=== PATIENT | female | born 1940 | race Caucasian/White ===

== ENCOUNTER → 2016-11-24 | Outpatient (CLI) | payer MEDICARE, BC ==
--- NOTE | 2016-11-25 12:55 | MM ---
Reason for exam: screening (asymptomatic). Last mammogram was performed 1 year and 1 month ago. History: Patient is postmenopausal. Family history of breast cancer in daughter at age 52 and breast cancer in paternal aunt at age 55. Benign excisional biopsy of the right breast. Physical Findings: A clinical breast exam by your physician is recommended on an annual basis and results should be correlated with mammographic findings. MG 3D Screening Mammo W/Cad Bilateral CC and MLO view(s) were taken. Prior study comparison: November 09, 2015, bilateral MG screening mammo w CAD. April 30, 2014, bilateral MG screening mammo w CAD. April 16, 2013, bilateral digital screening mammo w/CAD. There are scattered fibroglandular densities. There is no discrete abnormality. ASSESSMENT: Negative, BI-RAD 1 RECOMMENDATION: Routine screening mammogram of both breasts in 1 year.
== END | disposition home or self-care (01) ==
LOC: RADMAMWWP 09:17
PROVIDERS: ATTEND Family Medicine
DX: Z12.31 Encounter for screening mammogram for malignant neoplasm of breast (principal)
CPT/HCPCS: 77063; G0202

== ENCOUNTER → 2017-01-12 | Outpatient (CLI) | payer MEDICARE, BC ==
--- NOTE | 2017-01-12 13:01 | US ---
EXAMINATION TYPE: US kidneys/renal and bladder DATE OF EXAM: 01/12/2017 COMPARISON: NONE CLINICAL HISTORY: N39.0 Urinary tract infection. UTI, no pain EXAM MEASUREMENTS: Right Kidney: 10.8 x 5.0 x 4.2 cm Left Kidney: 10.6 x 4.7 x 4.9 cm Right Kidney: wnl Left Kidney: wnl Bladder: distended, wnl as visualized Bilateral Jets not seen There is no evidence for hydronephrosis at this point in time. No nephrolithiasis is seen. No marcel s are identified. Cortical medullary differentiation is normal. The urinary bladder is anechoic. Sarabjit ateral ureteral jets are not seen. No evident ascites. IMPRESSION: Normal renal ultrasound, no hydronephrosis.
--- NOTE | 2017-01-12 13:02 | XR ---
Abdomen HISTORY: Frequent urinary tract infection, and 39.0 Frontal view of the abdomen submitted, no comparisons Probable phleboliths within the pelvis. Lung bases are not included on the exam. Calcifications are n oted in the right upper quadrant. No pneumoperitoneum or bowel obstruction. There is likely facet art hropathy in the lower lumbar spine. IMPRESSION: Cholelithiasis.
== END | disposition home or self-care (01) ==
LOC: RADUSWWP 10:51
PROVIDERS: ATTEND Urology
DX: K80.20 Calculus of gallbladder without cholecystitis without obstruction (principal); N39.0 Urinary tract infection, site not specified
CPT/HCPCS: 74000; 76770

== ENCOUNTER → 2017-03-27 | Outpatient (CLI) | payer MEDICARE, BC ==
[2017-03-27 10:41] LABS: Basophils # (A) 0.1 k/uL (0-0.2); Basophils % (A) 1 %; CH 29.4; Eosinophils # (A) 0.2 k/uL (0-0.7); Eosinophils % (A) 2 %; HCT 42.5 % (34.0-46.0); HDW 2.26; HGB 13.6 gm/dL (11.4-16.0); Luc # (Auto) 0.16; Luc % (Auto) 2; Lymphocytes # (A) 2.5 k/uL (1.0-4.8); Lymphocytes % (A) 26 %; MCH 29.6 pg (25.0-35.0); MCV 92.5 fL (80.0-100.0); Mean Platelet Volume 7.5; Monocytes # (A) 0.5 k/uL (0-1.0); Monocytes % (A) 5 %; Neutrophils % (A) 64 %; RBC 4.59 m/uL (3.80-5.40); RDW 13.8 % (11.5-15.5); WBC 9.5 k/uL (3.8-10.6); WBC (Perox) 9.36
[2017-03-27 10:56] LABS: ALT 28 U/L (9-52); AST 19 U/L (14-36); Alkaline Phosphatase 78 U/L (38-126); Anion Gap 10 mmol/L; Blood Urea Nitrogen 19 mg/dL (7-17); Calcium 9.8 mg/dL (8.4-10.2); Carbon Dioxide 27 mmol/L (22-30); Chloride 106 mmol/L (98-107); Cholesterol 232 mg/dL (<200); Glucose 97 mg/dL (74-99); HDL Cholesterol 52 mg/dL (40-60); Non-African American GFR(MDRD) >60 (>60 ml/min/1.73 sqM); Potassium 4.2 mmol/L (3.5-5.1); Sodium 143 mmol/L (137-145); Total Bilirubin 0.3 mg/dL (0.2-1.3); Total Protein 7.5 g/dL (6.3-8.2)
== END | disposition home or self-care (01) ==
LOC: LABWHC1 09:37
PROVIDERS: ATTEND Family Medicine
DX: Z00.00 Encounter for general adult medical examination without abnormal findings (principal); M15.0 Primary generalized (osteo)arthritis; I10 Essential (primary) hypertension
CPT/HCPCS: 36415; 80053; 80061; 84439; 84443; 85025

== ENCOUNTER → 2017-10-10 | Outpatient (CLI) | payer MEDICARE, BC ==
--- NOTE | 2017-10-10 10:12 | CT ---
EXAMINATION TYPE: CT chest wo con DATE OF EXAM: 10/10/2017 COMPARISON: Low-dose CT of the lungs 04/03/2017 HISTORY: Lung nodule CT DLP: 389.[address] of the chest was performed with lung and mediastinal window settings submitted. The la ck of contrast limits evaluation of the vascular, mediastinal and parenchymal structures including th e upper abdomen. LUNGS: Noted are 2 stable nonspecific pulmonary nodules at the right lung base some measuring 3.8 mm and 3.5 L respectively. Small calcified granuloma also identified. No additional nodules are identifi ed. There is mild scattered subpleural fibrosis. MEDIASTINUM/LISBETH: Thoracic aorta is of normal caliber with limited evaluation given lack of contrast . Mild atheromatous change of the thoracic aorta. The heart is not enlarged. No evidence for mediast inal mass. No lymph nodes greater than 1cm. UPPER ABDOMEN: No significant abnormality is seen. OTHER: No significant other abnormality. IMPRESSION: 1. Stable nonspecific nodularity. Stability over a two-year timeframe should be documented radiograph ically. 2. Mild subpleural fibrosis. Minimal upper lobe emphysematous change.
== END | disposition home or self-care (01) ==
LOC: RADCTMAIN 09:34
PROVIDERS: ATTEND Family Medicine
DX: J84.10 Pulmonary fibrosis, unspecified (principal); J43.9 Emphysema, unspecified
CPT/HCPCS: 71250

== ENCOUNTER → 2018-03-02 | Outpatient (CLI) | payer MEDICARE, BC ==
--- NOTE | 2018-03-05 10:04 | MM ---
Reason for exam: screening (asymptomatic). Last mammogram was performed 1 year and 3 months ago. History: Patient is postmenopausal. Family history of breast cancer in daughter at age 52 and breast cancer in paternal aunt at age 55. Benign excisional biopsy of the right breast. Physical Findings: A clinical breast exam by your physician is recommended on an annual basis and results should be correlated with mammographic findings. MG 3D Screening Mammo W/Cad Bilateral CC and MLO view(s) were taken. Prior study comparison: November 24, 2016, bilateral MG 3d screening mammo w/cad. November 09, 2015, bilateral MG screening mammo w CAD. There are scattered fibroglandular densities. There is no discrete abnormality. No significant changes when compared with prior studies. ASSESSMENT: Negative, BI-RAD 1 RECOMMENDATION: Routine screening mammogram of both breasts in 1 year.
== END | disposition home or self-care (01) ==
LOC: RADMAMWWP 08:58
PROVIDERS: ATTEND Family Medicine
DX: Z12.31 Encounter for screening mammogram for malignant neoplasm of breast (principal)
CPT/HCPCS: 77063; 77067

== ENCOUNTER → 2018-03-09 | Outpatient (CLI) | payer MEDICARE, BC ==
--- NOTE | 2018-03-09 11:37 | FL ---
EXAMINATION TYPE: FL barium swallow w video DATE OF EXAM: 03/09/2018 MODIFIED SWALLOW / DEGLUTITION STUDY CLINICAL HISTORY: Dysphagia. TECHNIQUE: Deglutition study is performed utilizing thin liquid barium, honey and nectar thick liqui d barium, barium thick applesauce, and barium coated cracker. 1:05 min FL time. 0 fluoroscopic image s saved, video recorded aerated COMPARISON: None. FINDINGS: The oral and pharyngeal phases show satisfactory initiation and propagation with all modali ties tested. Normal mastication is seen with solid modalities tested. A lower cervical fusion device is seen. This location there is persistent/recurrent small volume stasis likely from esophageal spas m. There is no evidence of penetration or aspiration with any modality tested. No significant pharyn geal residue was appreciated. IMPRESSION: Small volume recurrent stasis anterior to the cervical fusion device likely as a result o f esophageal spasm. No evidence of laryngeal penetration or aspiration. Please refer to speech thera pist notes for further details if necessary.
== END | disposition home or self-care (01) ==
LOC: RADFLMAIN 10:51
PROVIDERS: ATTEND Otolaryngology
DX: R13.10 Dysphagia, unspecified (principal)
CPT/HCPCS: 74230

== ENCOUNTER → 2018-10-25 | Outpatient (CLI) | payer MEDICARE, BC ==
[2018-10-25 11:18] LABS: Basophils # (A) 0.1 k/uL (0-0.2); Basophils % (A) 1 %; Eosinophils # (A) 0.3 k/uL (0-0.7); Eosinophils % (A) 3 %; HCT 41.2 % (34.0-46.0); HGB 12.6 gm/dL (11.4-16.0); Lymphocytes % (A) 22 %; MCH 28.2 pg (25.0-35.0); MCHC 30.5 g/dL (31.0-37.0); MCV 92.5 fL (80.0-100.0); Mean Platelet Volume 8.6; Monocytes # (A) 0.5 k/uL (0-1.0); Monocytes % (A) 6 %; Neutrophils # (A) 6.4 k/uL (1.3-7.7); Neutrophils % (A) 68 %; Platelet Count 291 k/uL (150-450); RBC 4.45 m/uL (3.80-5.40); RDW 14.9 % (11.5-15.5); WBC 9.4 k/uL (3.8-10.6)
[2018-10-25 18:00] LABS: Albumin 4.1 g/dL (3.80-4.90); Albumin/Globulin Ratio 1.64 (1.60-3.17); Calcium 9.9 mg/dL (8.7-10.3); Globulin 2.5 g/dL (1.6-3.3); LDL Cholesterol,Calculated 98.6 mg/dL (0.0-131.0); Potassium 4.3 mmol/L (3.5-5.5); Total Bilirubin 0.4 mg/dL (0.2-1.2); Total Protein 6.6 g/dL (6.2-8.2); VLDL Calculation 16.4 mg/dL (5.00-40.00)
[2018-10-25 18:07] LABS: T4, Free (Free Thyroxine) 1.3 ng/dL (0.80-1.80)
== END | disposition home or self-care (01) ==
LOC: LABWHC1 09:58
PROVIDERS: ATTEND Family Medicine
DX: Z00.00 Encounter for general adult medical examination without abnormal findings (principal); E78.5 Hyperlipidemia, unspecified; I10 Essential (primary) hypertension; E03.9 Hypothyroidism, unspecified
CPT/HCPCS: 36415; 80053; 80061; 84439; 84443; 85025

== ENCOUNTER → 2019-01-03 | Outpatient (CLI) | payer MEDICARE | END | disposition home or self-care (01) | LOC: RADCTMAIN 16:09 | PROVIDERS: ATTEND Internal Medicine Critical Care Medicine | DX: Z53.9 Procedure and treatment not carried out, unspecified reason (principal) ==

== ENCOUNTER → 2019-01-10 | Outpatient (CLI) | payer MEDICARE ==
--- NOTE | 2019-01-10 08:19 | CT ---
EXAMINATION TYPE: CT chest w con DATE OF EXAM: 01/10/2019 COMPARISON: 10/11/2007 HISTORY: Prior abn CT CT DLP: 383.7 mGycm Automated exposure control for dose reduction was used. CONTRAST: CT scan of the chest is performed with IV Contrast, patient injected with 80 mL of Isovue 300. FINDINGS: LUNGS: Noted are 2 stable nonspecific pulmonary nodules at the right lung base some measuring 3.8 mm and 3.5 mm respectively. Small calcified granuloma also identified. No additional nodules are identif ied. There is mild scattered subpleural fibrosis. Emphysematous changes are noted. MEDIASTINUM: There are no greater than 1 cm hilar or mediastinal lymph nodes. No pericardial effusi on is seen. OTHER: Large gallstone noted. Hypertrophic and degenerative change of the spine. Surgical change in the cervical spine. IMPRESSION: 1. Stable nonspecific nodularity and findings of COPD. Stability over a two-year timeframe should be documented radiographically. 2. Mild subpleural fibrosis. 3. Large gallstone.
== END ==
LOC: RADCTMAIN 05:33
PROVIDERS: ATTEND Internal Medicine Critical Care Medicine
DX: J44.9 Chronic obstructive pulmonary disease, unspecified (principal); R91.8 Other nonspecific abnormal finding of lung field; J94.1 Fibrothorax; Z88.1 Allergy status to other antibiotic agents; Z88.2 Allergy status to sulfonamides; Z88.7 Allergy status to serum and vaccine; Z91.048 Other nonmedicinal substance allergy status
CPT/HCPCS: 82565; 84520; 71260; 36415; Q9967

== ENCOUNTER → 2019-01-14 | Outpatient (CLI) | payer MEDICARE, BC ==
[2019-01-14 16:09] LABS: Ionized Calcium 5.3 mg/dL (4.5-5.3)
[2019-01-15 02:05] LABS: African American GFR (CKD) 62.9 (60.0-200.0); Anion Gap 8.9 mmol/L (4.00-12.00); Calcium 9.2 mg/dL (8.7-10.3); Carbon Dioxide 28.1 mmol/L (21.6-31.8); Non-African American GFR(CKD) 54.3 (60.0-200.0); Potassium 3.9 mmol/L (3.5-5.5)
== END | disposition home or self-care (01) ==
LOC: LABWHC1 15:36
PROVIDERS: ATTEND Psychiatry & Neurology Neurology
DX: R25.2 Cramp and spasm (principal); R26.89 Other abnormalities of gait and mobility
CPT/HCPCS: 36415; 80048; 82330; 82550; 82607; 83735

== ENCOUNTER → 2019-02-05 | Outpatient (CLI) | payer MEDICARE, BC | END | disposition home or self-care (01) | LOC: LABWHC1 09:37 | PROVIDERS: ATTEND Psychiatry & Neurology Neurology | DX: R79.9 Abnormal finding of blood chemistry, unspecified (principal) | CPT/HCPCS: 36415; 82550 ==

== ENCOUNTER → 2019-12-16 | Outpatient (CLI) | payer MEDICARE, BC | END | disposition home or self-care (01) | LOC: LABWHC1 14:26 | PROVIDERS: ATTEND Psychiatry & Neurology Neurology | DX: G72.9 Myopathy, unspecified (principal) | CPT/HCPCS: 36415; 82550 ==

== ENCOUNTER → 2020-02-03 | Outpatient (CLI) | payer MEDICARE, BC | END | disposition home or self-care (01) | LOC: LABPAT 12:53 | PROVIDERS: ATTEND Orthopaedic Surgery | DX: Z01.812 Encounter for preprocedural laboratory examination (principal) | CPT/HCPCS: 87070 ==

== ENCOUNTER → 2020-02-17 | Outpatient (CLI) | payer MEDICARE, BC | END | disposition home or self-care (01) | LOC: LABWHC1 10:09 | PROVIDERS: ATTEND Psychiatry & Neurology Neurology | DX: G72.9 Myopathy, unspecified (principal) | CPT/HCPCS: 36415; 82550 ==

== ENCOUNTER 2020-03-02 11:07 | Day surgery (SDC) | payer BC, MEDICARE ==
[2020-02-27 10:07] VITALS: BMI 31.9
--- NOTE | 2020-03-01 10:18 | HP ---
HISTORY AND PHYSICAL REASON FOR ADMISSION: Surgery 03/02/2020 HISTORY OF PRESENT ILLNESS: Lashaun Andujar is a 79-year-old patient seen with symptomatic right knee osteoarthritis. We discussed options for treatment. She elected to proceed with right total knee arthroplasty. Consent regarding the procedure was obtained. Medical clearance was provided by Dr. Bryant Barboza. PAST MEDICAL HISTORY: Hypertension, hypothyroidism, gastroesophageal reflux disease. PAST SURGICAL HISTORY: Appendectomy, left total knee arthroplasty. Wrist surgery, ankle surgery. MEDICATIONS: Celebrex, Xarelto, omeprazole, propranolol, Synthroid ALLERGIES: ALLERGIES ARE VALIUM, TETRACYCLINE, NEOSPORIN, POLYSPORIN, SULFA. SOCIAL HISTORY: She currently smokes cigarettes. PHYSICAL EXAMINATION: Evaluation of the right knee range of motion is -2 to 120. Tenderness along the medial joint line. Crepitus along the medial and patellofemoral compartments with range of motion. Pain with patellofemoral compression. Ligaments stable. Hip rotation without pain. Distal neurovascular exam intact. Right knee radiographs revealed severe osteoarthritic changes. There is a unispacer noted in the medial compartment. IMPRESSION: 1. Right knee osteoarthritis/painful unicompartmental unispacer. 2. Atrial fibrillation. 3. Hypothyroidism. 4. Hypertension. PLAN: Right total knee arthroplasty. Surgery scheduled for 03/02/2020. MMODL / IJN: [id number] /
[~2020-03-02 11:07] MED LIST: ACETAMINOPHEN TAB 500 MG TAB PO ONE; DEXAMETHASONE SOD PHOSPHATE 10 MG/ML 1 ML VIAL IV ONE; HYDROmorphone 0.5 MG/0.5 ML SYRINGE IVP PRN; LACTATED RINGERS 1,000 ML IV SCH; MELOXICAM 7.5 MG TAB PO ONE; MIDAZOLAM 2 MG/2 ML VIAL IV PRN; ONDANSETRON 4 MG/2 ML VIAL IVP ONE; ROPIVACAINE 246.25 MG, EPINEPHrine 0.5 MG, KETOROLAC 30 MG, cloNIDine HCL/PF 80 MCG, WA... MISCELLANE ONE; SCOPOLAMINE 1.5MG/72HR PATCH TRANSDERM ONE; TRANEXAMIC ACID 1,000 MG in SODIUM CHLORIDE 0.9% 100 ML IVPB ONE; fentaNYL (PF) 50 MCG/ML 2 ML AMP IVP PRN
[2020-03-02 12:27] LABS: ALT 17 U/L (4-34); AST 27 U/L (14-36); African American GFR (CKD) >90 (>60 ml/min/1.73 sqM); Albumin 4.1 g/dL (3.5-5.0); Alkaline Phosphatase 89 U/L (38-126); Anion Gap 7 mmol/L; Blood Urea Nitrogen 19 mg/dL (7-17); Calcium 9.9 mg/dL (8.4-10.2); Carbon Dioxide 26 mmol/L (22-30); Chloride 106 mmol/L (98-107); Glucose 102 mg/dL (74-99); Non-African American GFR(CKD) 86 (>60 ml/min/1.73 sqM); Potassium 4.1 mmol/L (3.5-5.1); Sodium 139 mmol/L (137-145); Total Bilirubin 0.7 mg/dL (0.2-1.3); Total Protein 7.4 g/dL (6.3-8.2)
[2020-03-02] MEDS ORDERED: fentaNYL (PF) 50 MCG/ML 2 ML AMP IV ONE (12:41)
[2020-03-02] MEDS ORDERED: fentaNYL (PF) 50 MCG/ML 2 ML AMP ONE (12:49)
[2020-03-02] MEDS ORDERED: TRANEXAMIC ACID 1,000 MG/10 ML VIAL ONE (12:49)
[2020-03-02] MEDS ORDERED: SODIUM CHLORIDE 0.9% 100 ML BAG ONE (12:49)
[2020-03-02] MEDS ORDERED: PROPOFOL 10 MG/ML 20 ML VIAL IV ONE (12:49)
[2020-03-02] MEDS ORDERED: diphenhydrAMINE 50 MG/ML 1 ML VIAL ONE (12:49)
[2020-03-02 12:51] LABS: Prothrombin Time 10.7 sec (9.0-12.0)
[2020-03-02] MEDS ORDERED: ROPIVACAINE 0.2%-NS ON-Q PUMP 1,090 MG, EMPTY PAIN BALL 1 EACH MISCELLANE PRN (13:10)
--- NOTE | 2020-03-02 13:12 | P.ANPRN ---
Procedure Note - Anesthesia - Nerve Block Performed Right Adductor Canal Infusion Time Out Performed: Yes ([id number]) Date of Procedure: 03/02/20 Procedure Start Time: 12:41 Procedure Stop Time: 12:46 Location of Patient: PreOp Indication: Acute Post-Operative Pain, Requested by Surgeon Specifically requested for management of pain by DrJose F: Ant Severino Sedation Type: Sedate with meaningful contact maintained Preparation: Sterile Prep Position: Supine Catheter Depth at Skin (cm): 8 Catheter: Indwelling Needle Types: Pajunk Needle Gauge: 21 Ultrasound used to visualize needle placement: Yes Ultrasound used to observe medication spread: Yes Injectate: 0.5% Ropivacaine (see comment for volume) (20cc) Blood Aspirated: No Pain Paresthesia on Injection Noted: No Resistance on Injection: Normal Image Stored and Saved: Yes Events: Uneventful and Well Tolerated
[2020-03-02] MEDS ORDERED: NALOXONE 0.4 MG/ML 1 ML VIAL IV PRN (14:31)
[2020-03-02] MEDS ORDERED: HYDROcodone/APAP 5-325MG 1 EACH TAB PO PRN (14:31)
[2020-03-02] MEDS ORDERED: HYDROmorphone 0.5 MG/0.5 ML SYRINGE IVP PRN ×3 (14:31)
[2020-03-02] MEDS ORDERED: ONDANSETRON 4 MG/2 ML VIAL IVP PRN (14:31)
--- NOTE | 2020-03-02 14:31 | P.OP ---
Date of Procedure: 03/02/20 Preoperative Diagnosis: Right knee osteoarthritis Postoperative Diagnosis: Right knee osteoarthritis Procedure(s) Performed: Right total knee arthroplasty Implants: 1. Depuy attune size 6 narrow right cemented cruciate retaining femur 2. Depuy attune size 5 fixed bearing cemented tibial baseplate 3. Depuy attune size 6 fixed bearing cruciate retaining 8 mm polyethylene tibial insert 4. Depuy attune 41 mm all polyethylene cemented patella Anesthesia: regional (Adductor canal catheter), local, spinal Surgeon: Ant Severino Crossword Puzzle Maker #1: Blair Godinez Estimated Blood Loss (ml): 45 Pathology: other (Bone) Condition: stable Disposition: PACU Indications for Procedure: 79-year-old patient seen with symptomatic right knee osteoarthrosis with history of previous medial compartment uni-spacer insertion. We discussed total knee arthroplasty. She was agreeable and consent was obtained. Operative Findings: See description of procedure Description of Procedure: Patient was taken to the operative suite after having an adductor canal catheter placed by the department of anesthesia. Patient underwent a spinal anesthetic by the department of anesthesia. Patient was given preoperative IV intake antibiotics and TXA. A well-padded tourniquet was placed about the a lower extremity. The lower extremity was then prepped and draped in the normal sterile orthopedic fashion. The extremity was elevated, a tourniquet was insufflated to 300. A standard anterior incision was made sharply through skin. Dissection was taken down through the subcutaneous soft tissues down to the extensor mechanism. A medial arthrotomy was performed, patella was everted and knee was flexed. There was advanced osteoarthritis noted as well as a medial compartment metallic UniSpacer. I secured the uni-spacer with a pair of pliers and removed without difficulty. I introduced my distal intramedullary femoral drill. I then introduced the distal femoral cutting jig. Marcus GALLO secured the cutting jig with 2 pins. I held retractors in position while Marcus GALLO performed the distal femoral resection through the guide area we now removed her distal femoral cutting guide. We now placed our 4-in-1 femoral cutting block and positioned and it was secured with 2 pins by Marcus GALLO while I held the block in position. The distal femoral finishing was now comple cee. A proximal tibial cutting guide was positioned. I held the guide in the appropriate position with both hands well Marcus GALLO inserted stabilizing pins into the guide. Proximal tibial cut was made. We now placed a trial femoral component into position, along with an appropriate size tibial tray and insert. We now took the knee through range of motion and had full extension good flexion and good overall soft tissue balance noted. The patella was everted and stabilized with 2 towel clips held by Marcus GALLO while I performed a flush with patellar quad tendon utilizing a fresh sawblade. We templated the patella, appropriate drill holes were made. An appropriate trial patella was positioned, knee was taken through full range of motion with the patella tracking very nicely. The trial patella was removed. Drill holes were made through the femoral component. All trial components were removed after marking off the appropriate rotation of the tibia. Retractors were now pos itioned along the proximal tibia. An appropriate keel punch was made with the appropriate size tibial guide by myself on Marcus GALLO assisted by holding retractors. At this point appropriate size implants were chosen and opened. The joint was irrigated copiously with pulse lavage mechanical irrigation. The posterior capsule was infiltrated with local analgesic. The wound was irrigated with pulse lavage mechanical irrigation. We mixed antibiotic methylmethacrylate. We placed the knee into flexion. We placed multiple retractors assisted by Marcus GALLO to expose the proximal tibia. Once the methyl methacrylate was ready, the tibial component was cemented into place removing any excess methylmethacrylate form by both myself and Marcus GALLO. The femoral component was cemented into place removing the removing any excess methylmethacrylate performed by both myself and Marcus GALLO. We then inserted the appropriate size polyethylene tibial insert. We made sure that it was locked into position. We took the knee into full extension, and then back in a flexion making sure we had removed any excess methylmethacrylate. The patellar component was then cemented down and secured with clamp. Excess methylmethacrylate removed. We kept the knee in full extension, patellar clamp in position until methylmethacrylate had hardened. Once it had hardened the patellar clamp was removed. The knee was taken through full range of motion. The patella tracked nicely. There was good soft tissue balancing. The tourniquet was now released. Additional hemostasis was achieved via electrocautery. A second gram of TXA was given. The wound again was irrigated with pulse lavage mechanical irrigation. The superficial soft tissues were infiltrated local analgesic. The extensor mechanism was repaired with Vicryl. We checked the repair with range of motion and it was stable. The subcutaneous soft tissues were repaired with Vicryl in layers. The skin was approximated wit h pernio/Dermabond. Sterile dressings were applied followed by loose web roll and Berry bandage. The patient was transferred to a bed, and taken to recovery in stable and satisfactory condition. Marcus GALLO assisted with this complex procedure.
[2020-03-02] MEDS ORDERED: SODIUM CHLORIDE 0.9% 1,000 ML IV SCH (14:45)
--- NOTE | 2020-03-02 15:22 | XR ---
EXAMINATION TYPE: XR knee limited RT DATE OF EXAM: 03/02/2020 COMPARISON: None HISTORY: Postop knee replacement TECHNIQUE: 2 view right knee FINDINGS: Tibial and femoral components of in place. No acute fractures or dislocations are evident. This may be a revision. Postsurgical changes are within the soft tissues. IMPRESSION: 1. No acute fractures post knee replacement.
[2020-03-02] MEDS: HYDROcodone/APAP 5-325MG 1 EACH TAB PO PRN (17:58)
[2020-03-02] MEDS: PROPRANOLOL 10 MG TAB PO SCH (20:33)
[2020-03-02] MEDS: VALSARTAN 160 MG TAB PO SCH (20:33)
[2020-03-02] MEDS: hydroCHLOROthiazide 12.5 MG CAP PO SCH (20:33)
[2020-03-02] MEDS ORDERED: BACLOFEN 10 MG TAB PO SCH (21:00)
[2020-03-03] MEDS: HYDROcodone/APAP 5-325MG 1 EACH TAB PO PRN (03:15)
[2020-03-03] MEDS ORDERED: LEVOTHYROXINE 100 MCG TAB PO SCH (06:30)
--- NOTE | 2020-03-03 06:33 | P.PN ---
Progress Note - Text Progress Note Date: 03/03/20 Anesthesiology Postop day 1 status post total knee arthroplasty with adductor canal catheter. Patient doing well. VAS 1 out of 10. Gross strength intact in lower extremity. Afebrile. Denies alterations in sensorium. Catheter site intact. Heart regular rate Lungs nonlabored Abdomen nondistended Assessment: Postop day 1 status post total knee arthroplasty with adductor canal catheter Plan: All questions answered. Maintain catheter 2 more days with patient removal at home. Instructions were given at discharge.
[2020-03-03 08:00] VITALS: BP 123/64; PULSE 69; RESP 20; TEMP 97.9
--- NOTE | 2020-03-03 08:21 | P.CONS ---
History of Present Illness - Reason for Consult Consult date: 03/03/20 Medical management - Chief Complaint Right knee osteoarthritis. - History of Present Illness The patient is a 71-year-old white female who is postop day #1 for right knee arthroplasty. The patient is doing quite well and starting to ambulate nominally. No significant chest pain or shortness of breath. She hasn't underlying history of hypertension which is stable. History of hypertriglycerid emia as well. As of urinary incontinence Review of Systems Constitutional: Denies chills, Denies fever Eyes: denies blurred vision, denies pain Ears, nose, mouth and throat: Denies headache, Denies sore throat Cardiovascular: Denies chest pain, Denies shortness of breath Respiratory: Denies cough Gastrointestinal: Denies abdominal pain, Denies diarrhea, Denies nausea, Denies vomiting Genitourinary: Reports stress incontinence, Reports urge incontinence Musculoskeletal: Denies myalgias Past Medical History Past Medical History: Atrial Fibrillation, Cancer, CVA/TIA, Hyperlipidemia, Hypertension, Osteoarthritis (OA), Thyroid Disorder Additional Past Medical History / Comment(s): hx migraines, stroke -no resi dual effects, gallstones, frequent UTI's, urinary leakage/uses depends, skin cancer History of Any Multi-Drug Resistant Organisms: None Reported Past Surgical History: Appendectomy, Back Surgery, Cardiac Ablation, Heart Catheterization, Joint Replacement, Orthopedic Surgery Additional Past Surgical History / Comment(s): skin cancer removed from nose, fusion rt ankle, unispacer rt knee, left knee replacement, D&C x3, cervical fusion, cyst removed from chest and back, radha cataracts Past Anesthesia/Blood Transfusion Reactions: Previous Problems w/ Anesthesia Additional Past Anesthesia/Blood Transfusion Reaction / Comm: "comes out very fast" woke up during mult surgeries with general, was advised to use spinal in the past Past Psychological History: No Psychological Hx Reported Smoking Status: Never smoker Past Alcohol Use History: Occasional Additional Past Alcohol Use History / Comment(s): SMOKED SINCE HERS 20'S ,1/2 PPD, quit smoking 4-5 yrs ago Past Drug Use History: None Reported - Past Family History Father Family Medical History: Cancer Daughter(s) Family Medical History: Cancer Additional Family Medical History / Comment(s): breast Medications and Allergies Home Medications Medication Instructions Recorded Confirmed Type Celecoxib [CeleBREX] 200 mg PO DAILY PRN 01/31/14 03/02/20 History Rivaroxaban [Xarelto] 20 mg PO PC-SUPPER 01/31/14 03/02/20 History Valsartan/Hydrochlorothiazide 1 tab PO BID 01/31/14 03/02/20 History [Valsartan-Hctz 160-12.5 mg Tab] Ascorbic Acid [Vitamin C] 500 mg PO DAILY 12/08/14 03/02/20 History Multivitamins, Thera [Multivitamin 1 each PO DAILY 12/08/14 03/02/20 History (formulary)] Omeprazole [PriLOSEC] 20 mg PO DAILY PRN 12/08/14 03/02/20 History Cholecalciferol [Vitamin D3 (25 2,000 unit PO DAILY 12/11/14 03/02/20 History Mcg = 1000 Iu)] Calcium Carbonate/Vitamin D3 1 each PO DAILY 04/21/16 03/02/20 History [Calcium 600-Vit D3 400 Caplet] Baclofen [Lioresal] 20 mg PO HS 02/27/20 03/02/20 History Cyanocobalamin (Vitamin B-12) 1,000 mcg PO DAILY 02/27/20 03/02/20 History [Vitamin B-12] Fish Oil/Dha/Epa [Fish Oil 1,200 1 each PO DAILY 02/27/20 03/02/20 History mg Fish Oil] Flecainide [Tambocor] 50 mg PO DIRECTED PRN 02/27/20 03/02/20 History Levothyroxine Sodium [Unithroid] 100 mcg PO QAM 02/27/20 03/02/20 History Magnesium 250 mg PO DAILY 02/27/20 03/02/20 History Metoprolol Tartrate [Lopressor] 12.5 mg PO DIRECTED PRN 02/27/20 03/02/20 History Montelukast Sodium [Singulair] 10 mg PO HS PRN 02/27/20 03/02/20 History Propranolol [Inderal] 10 mg PO BID 02/27/20 03/02/20 History Tolterodine ER [Detrol LA] 4 mg PO DAILY 02/27/20 03/02/20 History Allergies Allergy/AdvReac Type Severity Reaction Status Date / Time bacitracin Allergy CAUSED Verified 03/02/20 11:56 [From Neosporin INFECTION ([id number])] WHERE APPLIED bacitracin zinc Allergy infection Verified 03/02/20 11:56 [From Neosporin ([id number]-big-[id number])] bee venom protein (honey bee) Allergy Swelling Verified 03/02/20 11:56 diazepam [From Valium] Allergy Hallucinati Verified 03/02/20 11:56 ons Iodinated Contrast Media Allergy Swelling/hi Verified 03/02/20 11:56 [Iodinated Contrast Media - ves IV Dye] neomycin sulfate Allergy Rash/Hives Verified 03/02/20 11:56 [From Neosporin ([id number])] polymyxin B Allergy Rash/Hives Verified 03/02/20 11:56 [From Neosporin ([id number]-[id number])] polymyxin B sulfate Allergy Rash/Hives Verified 03/02/20 11:56 [From Polysporin] Sulfa (Sulfonamide Allergy Rash/Hives Verified 03/02/20 11:56 Antibiotics) tetracycline Allergy Hallucinati Verified 03/02/20 11:56 ons iodine AdvReac Swelling/hi Verified 03/02/20 11:56 ves DYCL Allergy Unknown Uncoded 03/02/20 11:56 Physical Exam Vitals: Vital Signs Temp Pulse Resp BP Pulse Ox 03/03/20 07:00 97.9 F 69 20 123/64 97 03/03/20 01:24 97.5 F L 68 112/64 95 03/02/20 18:47 97.5 F L 80 147/70 96 03/02/20 17:33 97.9 F 74 16 152/82 96 03/02/20 16:30 65 18 138/60 100 03/02/20 16:00 69 18 148/67 100 03/02/20 15:45 72 18 130/58 100 03/02/20 15:30 64 18 128/60 99 03/02/20 15:15 64 18 99 03/02/20 15:00 68 18 129/56 99 03/02/20 14:52 98.3 F 66 18 130/61 96 03/02/20 12:48 67 18 159/64 99 03/02/20 11:51 98.3 F 71 18 115/62 96 Intake and Output 09/28/20 09/29/20 09/29/20 22:59 06:59 14:59 Other: # Voids 1 1 Weight 87.5 kg - Constitutional General appearance: no acute distress - EENT Eyes: EOMI - Neck Neck: no lymphadenopathy - Respiratory Respiratory: bilateral: CTA - Cardiovascular Rhythm: irregularly irregular Heart sounds: normal: S1, S2 Abnormal Heart Sounds: no S3 Gallop - Gastrointestinal General gastrointestinal: soft, no tenderness - Integumentary Integumentary: no cellulitis - Neurologic Neurologic: CNII-XII intact Results CBC & Chem 7: 03/02/20 11:59 Labs: Abnormal Lab Results - Last 24 Hours (Table) 03/02/20 Range/Units 11:59 BUN 19 H (7-17) mg/dL Glucose 102 H (74-99) mg/dL Assessment and Plan (1) History of arthroplasty of right knee Current Visit: Yes Status: Acute Code(s): Z96.651 - PRESENCE OF RIGHT ARTIFICIAL KNEE JOINT SNOMED Code(s): 401665741 (2) Atrial fibrillation Current Visit: No Status: Acute Code(s): I48.91 - UNSPECIFIED ATRIAL FIBRILLATION SNOMED Code(s): 61505783 Plan: Reconcile home medications. DVT and GI prophylaxis as necessary. We'll continue to follow. We'll plan to see discharge in next 2448 hours. Time with Patient: Greater than 30
[2020-03-03] MEDS: hydroCHLOROthiazide 12.5 MG CAP PO SCH (08:46)
[2020-03-03] MEDS: VALSARTAN 160 MG TAB PO SCH (08:46)
[2020-03-03] MEDS: PROPRANOLOL 10 MG TAB PO SCH (08:47)
[2020-03-03] MEDS ORDERED: CYANOCOBALAMIN 500 MCG TAB PO SCH (09:00)
[2020-03-03] MEDS ORDERED: MULTIVITAMINS, THERA 1 EACH TAB PO SCH (09:00)
[2020-03-03] MEDS ORDERED: MAGNESIUM OXIDE 400 MG TAB PO SCH (09:00)
[2020-03-03] MEDS ORDERED: ENOXAPARIN 30 MG/0.3 ML SYRINGE SQ SCH (09:00)
[2020-03-03] MEDS ORDERED: ASCORBIC ACID 500 MG TAB PO SCH (09:00)
[2020-03-03] MEDS ORDERED: NON FORMULARY DRUG (Fish Oil/Dha/Epa [Fish Oil 1,200 Mg Fish Oil] 1 EACH Capsule) PO SCH (09:00)
[2020-03-03] MEDS ORDERED: CALCIUM CARB-VIT D 500MG-200UN 1 EACH TAB PO SCH (09:00)
[2020-03-03] MEDS ORDERED: OXYBUTYNIN XL 5 MG TAB.ER.24 PO SCH (09:00)
[2020-03-03] MEDS ORDERED: CHOLECALCIFEROL 1,000 UNIT TAB PO SCH (09:00)
[2020-03-03 12:01] LABS: Basophils % (A) 0 %; Eosinophils % (A) 0 %; HCT 37.5 % (34.0-46.0); HGB 11.8 gm/dL (11.4-16.0); Lymphocytes # (A) 1.7 k/uL (1.0-4.8); Lymphocytes % (A) 10 %; MCH 29.3 pg (25.0-35.0); MCHC 31.5 g/dL (31.0-37.0); Mean Platelet Volume 10.2; Monocytes # (A) 1.2 k/uL (0-1.0); Monocytes % (A) 7 %; Neutrophils # (A) 13.2 k/uL (1.3-7.7); Neutrophils % (A) 81 %; Platelet Count 220 k/uL (150-450); RBC 4.03 m/uL (3.80-5.40); RDW 13.9 % (11.5-15.5); WBC 16.3 k/uL (3.8-10.6)
--- NOTE | 2020-03-03 12:14 | P.PN ---
Subjective Progress Note Date: 03/03/20 Principal diagnosis: status post right total knee arthroplasty Patient evaluated at bedside, is present. She is resting comfortably, her pain is controlled. She did well with therapy. She currently denies any chest pain or shortness of breath. Objective - Vital Signs Vital signs: Vital Signs Temp 97.9 F 03/03/20 07:00 Pulse 69 03/03/20 08:00 Resp 20 03/03/20 08:00 BP 123/64 03/03/20 07:00 Pulse Ox 97 03/03/20 07:00 Intake & Output 03/02/20 03/03/20 03/03/20 18:59 06:59 18:59 Intake Total 750 200 Balance 750 200 Weight 87.5 kg Intake: IV 750 Oral 200 Other: # Voids 1 - Exam Right lower extremity: Incision is clean, dry, and intact. The home dressing is in good condition. There is minimal soft tissue swelling and ecchymosis surrounding the medial and lateral aspects of the incision. Calf is soft, no tenderness with palpation. Plantar flexion, dorsiflexion, EHL, FHL are intact. Sensory exam to light touch throughout the extremity is intact, dorsal pedis pulses 2+. - Labs CBC & Chem 7: 03/03/20 07:33 03/02/20 11:59 Labs: Abnormal Lab Results - Last 24 Hours (Table) 03/02/20 03/03/20 Range/Units 11:59 07:33 WBC 16.3 H (3.8-10.6) k/uL Neutrophils # 13.2 H (1.3-7.7) k/uL Monocytes # 1.2 H (0-1.0) k/uL BUN 19 H (7-17) mg/dL Glucose 102 H (74-99) mg/dL Assessment and Plan Assessment: Status post right total knee arthroplasty Plan: Pain control, discharge home on oral medication GI and DVT prophylaxis, she will resume her Xarelto today Wound care instructions discussed, icing and elevating techniques discussed Home physical therapy and nursing Medical recommendations Plan for discharge home today Time with Patient: Less than 30
--- NOTE | 2020-03-03 12:16 | P.DS ---
Providers Date of admission: 03/02/2020 Expected date of discharge: 03/03/20 Attending physician: Ant Severino Consults: 03/02/20 14:31 Consult Physician Routine Consulting Provider: Bryant Barboza Reason/Comments: Medical management Do you want consulting provider notified?: Yes Primary care physician: Stated None Hospital Course: Date of admission: 03/02/2020 Date of discharge: 03/03/2020 Admission diagnosis: Status post right total knee arthroplasty Discharge diagnosis: Same Attending physician: Dr. Severino Surgical procedures: Right total knee arthroplasty Brief history: Patient is a 79-year-old female with a history of progressive primary right knee osteoarthritis. At this point patient has failed conservative treatment measures and has opted to proceed with a elective right total knee arthroplasty. Hospital course: Details of patient's surgery can be found in operative report. Patient tolerated the procedure well and was subsequently transported to orthopedic floor. Patient's orthopeidc and medical care was provided daily. Patient had daily laboratory tests performed for evaluation of overall blood counts. Patient had daily physical therapy to include strengthening range of motion as well as education with walker ambulation. Patient was treated with Xarelto for their postoperative DVT prophylaxis during their inpatient stay. Patient was noted to have a relatively uneventful postoperative course. Patient reported satisfactory pain control with oral pain medications by postoperative day . Patient showed satisfactory progress with physical therapy. Patient moved steadily through the program and had no difficulty meeting the goals by postoperative day 1. Given patient's otherwise satisfactory course and having met physical therapy goals, plan is to discharge patient home on postoperative day 1. Discharge condition/disposition: Patient will be discharged home in stable condition. Discharge medications: Instructions are given on resumption of patient's normal daily medications per primary care recommendation, in addition patient will be prescribed [place] 5 mg/325 mg, Colace 100 mg. Discharge instructions: 1. Wound care and infection precautions, keep incision dry and covered while showering, no lotions, creams, moisturizers. No soaking, tubs, pools, hottubs. Do not scrub over the incision. Okay to remove foam dressing on 03/11/2020 2. Weight-bear as tolerated with walker / cane until follow-up. 3. Ice and elevate when necessary. Do not exceed 20 minutes per hour with ice pack. 4. Utilize compression sleeve until seen at first follow up appointment. 5. Visiting nursing care. 6. Home physical therapy including home CPM. 7. Pain meds and anticoagulants per prescription. 8. Pain medication has potential to cause constipation. Increase oral fluid and fiber intake. Contact primary care provider if you have not had a bowel movement within 48 hours after discharge 9. No anti-inflammatory medication until discussed at first post operative visit, this including Motrin, Aleve, Mobic, Diclofenac 10. Follow up in office at 2 weeks postop with Marcus Godinez PA-C 11. Follow up with your primary care doctor 7-10 days after discharge. 12. Contact [facility] with any questions, . Procedures: Right total knee arthroplasty Patient Condition at Discharge: Good Plan - Discharge Summary Discharge Rx Participant: Yes New Discharge Prescriptions: New Docusate [Colace] 100 mg PO DAILY #30 capsule Hydrocodone/Acetaminophen [[place] 5-325] 1 - 2 each PO Q6HR PRN #56 tab PRN Reason: Pain No Action Celecoxib [CeleBREX] 200 mg PO DAILY PRN PRN Reason: Pain Valsartan/Hydrochlorothiazide [Valsartan-Hctz 160-12.5 mg Tab] 1 tab PO BID Rivaroxaban [Xarelto] 20 mg PO PC-SUPPER Omeprazole [PriLOSEC] 20 mg PO DAILY PRN PRN Reason: Heartburn Ascorbic Acid [Vitamin C] 500 mg PO DAILY Multivitamins, Thera [Multivitamin (formulary)] 1 each PO DAILY Cholecalciferol [Vitamin D3 (25 Mcg = 1000 Iu)] 2,000 unit PO DAILY Calcium Carbonate/Vitamin D3 [Calcium 600-Vit D3 400 Caplet] 1 each PO DAILY Cyanocobalamin (Vitamin B-12) [Vitamin B-12] 1,000 mcg PO DAILY Fish Oil/Dha/Epa [Fish Oil 1,200 mg Fish Oil] 1 each PO DAILY Propranolol [Inderal] 10 mg PO BID Baclofen [Lioresal] 20 mg PO HS Metoprolol Tartrate [Lopressor] 12.5 mg PO DIRECTED PRN PRN Reason: AFIB Flecainide [Tambocor] 50 mg PO DIRECTED PRN PRN Reason: AFIB Tolterodine ER [Detrol LA] 4 mg PO DAILY Levothyroxine Sodium [Unithroid] 100 mcg PO QAM Magnesium 250 mg PO DAILY Montelukast Sodium [Singulair] 10 mg PO HS PRN PRN Reason: Sinus Symptoms Discharge Medication List Celecoxib [CeleBREX] 200 mg PO DAILY PRN 01/31/14 [History] Rivaroxaban [Xarelto] 20 mg PO PC-SUPPER 01/31/14 [History] Valsartan/Hydrochlorothiazide [Valsartan-Hctz 160-12.5 mg Tab] 1 tab PO BID 01/31/14 [History] Ascorbic Acid [Vitamin C] 500 mg PO DAILY 12/08/14 [History] Multivitamins, Thera [Multivitamin (formulary)] 1 each PO DAILY 12/08/14 [History] Omeprazole [PriLOSEC] 20 mg PO DAILY PRN 12/08/14 [History] Cholecalciferol [Vitamin D3 (25 Mcg = 1000 Iu)] 2,000 unit PO DAILY 12/11/14 [History] Calcium Carbonate/Vitamin D3 [Calcium 600-Vit D3 400 Caplet] 1 each PO DAILY 04/21/16 [History] Baclofen [Lioresal] 20 mg PO HS 02/27/20 [History] Cyanocobalamin (Vitamin B-12) [Vitamin B-12] 1,000 mcg PO DAILY 02/27/20 [History] Fish Oil/Dha/Epa [Fish Oil 1,200 mg Fish Oil] 1 each PO DAILY 02/27/20 [History] Flecainide [Tambocor] 50 mg PO DIRECTED PRN 02/27/20 [History] Levothyroxine Sodium [Unithroid] 100 mcg PO QAM 02/27/20 [History] Magnesium 250 mg PO DAILY 02/27/20 [History] Metoprolol Tartrate [Lopressor] 12.5 mg PO DIRECTED PRN 02/27/20 [History] Montelukast Sodium [Singulair] 10 mg PO HS PRN 02/27/20 [History] Propranolol [Inderal] 10 mg PO BID 02/27/20 [History] Tolterodine ER [Detrol LA] 4 mg PO DAILY 02/27/20 [History] Docusate [Colace] 100 mg PO DAILY #30 capsule 03/03/20 [Rx] Hydrocodone/Acetaminophen [[place] 5-325] 1 - 2 each PO Q6HR PRN #56 tab 03/03/20 [Rx] Follow up Appointment(s)/Referral(s): [facility]ipment [NON-STAFF] - As Needed (Continuous Passive Motion knee machine.) Blair Godinez, PAC [PHYSICIAN PATHOLOGY TECH] - 03/18/20 2:30 pm [facility] Visiting Nurse, [NON-STAFF] - As Needed Activity/Diet/Wound Care/Special Instructions: Orthopedic Discharge Instructions: 1. Wound care and infection precautions, [keep incision dry and covered while showering], no lotions, creams, moisturizers. No soaking, pools, hot tubs. Do not scrub over incision. Okay to remove dressing on 03/11/2020 2. Weight-bear as tolerated with walker / cane until follow-up. 3. Ice and elevate when necessary. Do not exceed 20 minutes per hour with ice pack. 4. Utilize compression sleeve until seen at first follow up appointment. 5. Pain meds and anticoagulants per prescription. 6. Pain medication has potential to cause constipation. Increase oral fluid and fiber intake. Contact primary care provider if you have not had a bowel movement within 48 hours after discharge. 7. No anti-inflammatory medication until discussed at first post operative visit, this including Motrin, Aleve, Mobic, Diclofenac 8. Follow up in office at 2 weeks postop with Marcus Godinez PA-C 9. Follow up with your primary care doctor 7-10 days after discharge. 10. Contact [facility] with any questions, . Discharge Disposition: HOME WITH HOME HEALTH SERVICES
[2020-03-03] MEDS ORDERED: RIVAROXABAN 20 MG TAB PO SCH (17:30)
== END 2020-03-03 14:30 | disposition home health service (06) ==
LOC: OR 11:07 → 4SSUR 14:22 → OR 03-03 14:30
PROVIDERS: ATTEND Orthopaedic Surgery
DX: M17.11 Unilateral primary osteoarthritis, right knee (principal); I48.0 Paroxysmal atrial fibrillation; I44.1 Atrioventricular block, second degree; I47.1 Supraventricular tachycardia; I10 Essential (primary) hypertension; J44.9 Chronic obstructive pulmonary disease, unspecified; E11.9 Type 2 diabetes mellitus without complications; E03.9 Hypothyroidism, unspecified; E78.5 Hyperlipidemia, unspecified; G43.909 Migraine, unspecified, not intractable, without status migrainosus; G25.0 Essential tremor; Z91.041 Radiographic dye allergy status; Z88.2 Allergy status to sulfonamides; Z88.1 Allergy status to other antibiotic agents; Z88.8 Allergy status to other drugs, medicaments and biological substances; Z87.891 Personal history of nicotine dependence; Z79.890 Hormone replacement therapy; Z79.01 Long term (current) use of anticoagulants; Z79.1 Long term (current) use of non-steroidal anti-inflammatories (NSAID); Z79.899 Other long term (current) drug therapy; Z86.73 Personal history of transient ischemic attack (TIA), and cerebral infarction without residual deficits; Z85.828 Personal history of other malignant neoplasm of skin; Z98.890 Other specified postprocedural states; Z96.652 Presence of left artificial knee joint; Z98.1 Arthrodesis status; Z98.41 Cataract extraction status, right eye; Z98.42 Cataract extraction status, left eye; Z80.3 Family history of malignant neoplasm of breast; M85.80 Other specified disorders of bone density and structure, unspecified site; Z82.61 Family history of arthritis; Z81.8 Family history of other mental and behavioral disorders; Z80.8 Family history of malignant neoplasm of other organs or systems
CPT/HCPCS: 97110; 97161; 64448; 76942; 80053; 85025; 85610; 88300; 73560; 27447; C1776; C1713; J0171; J1200; J1100; J0690 ×2; J2405; J3010; J1885; J2795 ×2; J2704; J0735

== ENCOUNTER → 2021-03-09 | Outpatient (CLI) | payer MEDICARE, BC ==
--- NOTE | 2021-03-09 12:30 | MR ---
EXAMINATION TYPE: MR brain and iac wo/w con DATE OF EXAM: 03/09/2021 COMPARISON: None HISTORY: Acoustic nerve disorder, tinnitus, Rt hearing loss TECHNIQUE: Multiplanar, multisequence images of the brain and brainstem is performed without and with IV contras t, utilizing 7 mL intravenous Gadavist . Small [id number] high-resolution images obtained through the internal auditory canals FINDINGS: Diffusion weighted images demonstrate no evidence of a recent infarct or other diffusion ab normality. There is no extra-axial fluid collection. Scattered and confluent hyperintensity present in the pericallosal, periventricular, subcortical white matter, findings likely due to chronic small vessel ischemia. There is some focal encephalomalacia present within the posterior left parietal and occipital lobes, some local gliosis. The ventricular system and cisternal spaces are normal in size and appearance. The brain volume is age appropriate. The cerebellopontine angles are within normal limits. There is no abnormal soft tissue lung internal auditory canals. Midline structures demonstrate normal morphology. The craniocervical junction appears within normal limits. Post contrast images demonstrate no abnormal enhancement. The dural venous sinuses appear pa tent. The visualized sinuses are clear and the globes are intact. IMPRESSION: Age-related atrophy and chronic small vessel ischemic changes. No evident internal audito ry canal mass.
== END | disposition home or self-care (01) ==
LOC: RADMRIMAIN 08:29
PROVIDERS: ATTEND Otolaryngology
DX: I67.82 Cerebral ischemia (principal); G31.9 Degenerative disease of nervous system, unspecified
CPT/HCPCS: 70553; A9585

== ENCOUNTER → 2021-11-02 | Outpatient (CLI) | payer MEDICARE, BC | END | disposition home or self-care (01) | LOC: LABWHC1 09:35 | PROVIDERS: ATTEND Psychiatry & Neurology Neurology | DX: E53.9 Vitamin B deficiency, unspecified (principal); G73.7 Myopathy in diseases classified elsewhere | CPT/HCPCS: 36415; 82550; 82607 ==

== ENCOUNTER → 2022-04-25 | Outpatient (CLI) | payer MEDICARE, BC ==
[2022-04-26 00:48] LABS: Protein, Total 7.1 g/dL (6.2-8.2)
[2022-04-26 15:16] LABS: Albumin 3.71 g/dL (3.80-4.90); Gamma Globulin 1.11 g/dL (0.70-1.50)
== END | disposition home or self-care (01) ==
LOC: LABWHC1 10:05
PROVIDERS: ATTEND Psychiatry & Neurology Neurology
DX: G62.9 Polyneuropathy, unspecified (principal); M62.81 Muscle weakness (generalized)
CPT/HCPCS: 36415; 82550; 82607; 83036; 84165; 85652

== ENCOUNTER → 2023-02-17 | Outpatient (CLI) | payer BC, MEDICARE ==
--- NOTE | 2023-02-17 14:25 | MR ---
EXAMINATION TYPE: MR shoulder RT wo con DATE OF EXAM: 02/17/2023 COMPARISON: None HISTORY: Pain in right arm and shoulder TECHNIQUE: Multiplanar, multisequence imaging of the right shoulder is performed without contrast. FINDINGS: There are marked osteoarthritic changes of glenohumeral joint with marked joint space narrowing and s ubchondral changes within the bony glenoid and humeral head.. There is moderate osteoarthritic change of the acromioclavicular joint resulting in mild shoulder impingement. There are complete full-thickness tears of the supraspinatus and infraspinatus tendons with retractio n of the musculotendinous junctions medially. There is mild superior subluxation of glenohumeral join t. There are partial thickness tears of the subscapularis tendon near its insertion on the humeral he ad. There is marked fluid in the biceps tendon sheath and the biceps tendon is avulsed from the bicep s anchor consistent with a SLAP injury involving the biceps anchor and superior cartilaginous labrum. There is subacromial and subdeltoid bursitis. IMPRESSION: 1. Multiple tears of the rotator cuff as described above. 2. Marked degenerative change of the glenohumeral joint and moderate degenerative changes acromioclav icular joint. 3. SLAP injury involving the superior cartilaginous labrum and biceps anchor. 4. Subacromial and subdeltoid bursitis.
== END | disposition home or self-care (01) ==
LOC: RADMRIMAIN 06:36
PROVIDERS: ATTEND Orthopaedic Surgery
DX: S46.011A Strain of muscle(s) and tendon(s) of the rotator cuff of right shoulder, initial encounter (principal); M19.011 Primary osteoarthritis, right shoulder; M75.51 Bursitis of right shoulder

== ENCOUNTER 2023-03-06 09:37 | Day surgery (SDC) | payer MEDICARE, BC ==
[2023-02-28 12:35] VITALS: BMI 29.6
[~2023-03-06 09:37] MED LIST changes: -ACETAMINOPHEN TAB 500 MG TAB PO ONE; -DEXAMETHASONE SOD PHOSPHATE 10 MG/ML 1 ML VIAL IV ONE; -HYDROmorphone 0.5 MG/0.5 ML SYRINGE IVP PRN; -LACTATED RINGERS 1,000 ML IV SCH; -MELOXICAM 7.5 MG TAB PO ONE; -MIDAZOLAM 2 MG/2 ML VIAL IV PRN; -ONDANSETRON 4 MG/2 ML VIAL IVP ONE; -ROPIVACAINE 246.25 MG, EPINEPHrine 0.5 MG, KETOROLAC 30 MG, cloNIDine HCL/PF 80 MCG, WA... MISCELLANE ONE; -SCOPOLAMINE 1.5MG/72HR PATCH TRANSDERM ONE; +SODIUM CHLORIDE 0.9% 1,000 ML IV SCH; -TRANEXAMIC ACID 1,000 MG in SODIUM CHLORIDE 0.9% 100 ML IVPB ONE; -fentaNYL (PF) 50 MCG/ML 2 ML AMP IVP PRN
[2023-03-06] MEDS ORDERED: SODIUM CHLORIDE 0.9% 500 ML 500 ML IV ONE (10:00)
[2023-03-06 10:17] VITALS: BP 168/75; PULSE 71; RESP 16; TEMP 97.8
[2023-03-06] MEDS ORDERED: LIDOCAINE 1% INJ 10MG/ML (20 ML MDV) SQ ONE (10:52)
--- NOTE | 2023-03-06 11:12 | P.EPPROC ---
- EP Procedure Note Electrophysiology Procedure Note: Loop monitor implant Primary physicians: Street Car Mechanic: Dr. Abarca Indication: Recurrent palpitations, history of PAF Patient was brought to the EP lab in a fasting state. Written informed consent was obtained prior to the procedure. The left pectoral area was prepped and draped per protocol. Intravenous antibiotic was administered preoperatively. A subcutaneous Loop monitor was implanted successfully and the wound was closed per protocol. The device was programmed to detect significant ian- arrhythmic and tachy-arrhythmic events, per protocol. Device and programming details: PAF management
== END 2023-03-06 11:40 | disposition home or self-care (01) ==
LOC: CATHEP 09:37
PROVIDERS: ATTEND Internal Medicine Clinical Cardiac Electrophysiology
DX: I48.0 Paroxysmal atrial fibrillation (principal); I10 Essential (primary) hypertension; E78.5 Hyperlipidemia, unspecified; F17.210 Nicotine dependence, cigarettes, uncomplicated; Z79.899 Other long term (current) drug therapy
CPT/HCPCS: 33285; C1764; J0690; J2001